=== PATIENT | female | born 1965 | race Caucasian/White ===

== ENCOUNTER 2023-12-04 20:20 | Inpatient (IN) | payer OTHER, MEDICAID ==
[~2023-12-04] VITALS: Ht 165.1 cm; Wt 36.3 kg
[2023-12-04 20:27] VITALS: BP 110/60; PULSE 71; RESP 18; TEMP 98; O2SAT 99
[2023-12-04 21:45] LABS: BASOPHILS % (AUTO) 0.5 % (0.0-2.0); EOSINOPHILS # (AUTO) 0.3 K/uL (0-0.4); EOSINOPHILS % (AUTO) 4.4 % (0.0-4.0); HEMATOCRIT 24.6 % (36-48); HEMOGLOBIN 8.2 g/dL (12.0-16.0); LYMPHOCYTES # (AUTO) 2.2 K/uL (2.5-16.5); LYMPHOCYTES % (AUTO) 33.9 % (20.5-51.1); MEAN CORPUSCULAR HEMOGLOBIN 30 pg (27-31); MEAN CORPUSCULAR HGB CONC 33 g/dL (33-37); MEAN CORPUSCULAR VOLUME 91.4 fL (80-94); MONOCYTES # (AUTO) 0.8 K/uL (0.8-1.0); MONOCYTES % (AUTO) 12.6 % (1.7-9.3); NEUTROPHILS # (AUTO) 3.2 K/uL (1.8-7.7); NEUTROPHILS % (AUTO) 48.6 % (42.2-75.2); PLATELET COUNT (AUTO) 369 K/uL (140-450); RED BLOOD CELL COUNT(AUTO) 2.69 MIL/uL (4.20-5.40); RED CELL DISTRIBUTION WIDTH 16.6 % (11.6-13.7); WHITE BLOOD COUNT (AUTO) 6.5 K/uL (4.8-10.8)
[2023-12-04] MEDS ORDERED: ACETAMINOPHEN 325 MG TAB PO PRN ×2 (22:00→22:30)
[2023-12-04] MEDS ORDERED: ONDANSETRON 4 MG/2 ML VIAL IVP PRN (22:00)
[2023-12-04 22:04] LABS: ALANINE AMINOTRANSFERASE 5 U/L (12-78); ALBUMIN 1.8 g/dL (3.4-5.0); ALKALINE PHOSPHATASE 98 U/L (50-136); ANION GAP 13.7 (8-16); ASPARTATE AMINOTRANSFERASE 10 U/L (15-37); CALCIUM 8.5 mg/dL (8.5-10.1); CARBON DIOXIDE 20.2 mmol/L (21-32); CHLORIDE 109 mmol/L (98-107); CREATININE 1.4 mg/dL (0.6-1.3); GFR ARICAN-AMERICAN 49 mL/min (>90); GFR NON ARICAN-AMERICAN 41 mL/min (>90); GLUCOSE 110 mg/dL (74-106); SODIUM SERUM 140 mmol/L (136-145); TOTAL BILIRUBIN 0.2 mg/dL (0.0-1.0); TOTAL PROTEIN, SERUM 6.6 g/dL (6.4-8.2); UREA NITROGEN, BLOOD 33 mg/dL (7-18)
[2023-12-04 22:07] LABS: POTASSIUM 2.9 mmol/L (3.5-5.1)
[2023-12-04 22:27] LABS: APPEARANCE,URINE CLEAR (CLEAR); BILIRUBIN,URINE NEGATIVE (NEGATIVE); BLOOD, URINE 2+ (NEGATIVE); COLOR,URINE YELLOW (YELLOW); LEUKOCYTE ESTERASE ,URINE 3+ (NEGATIVE); NITRITE, URINE POSITIVE (NEGATIVE); PH,URINE 6.5 (5.0-9.0); PROTEIN,URINE 1+ (NEGATIVE); UGLUCOSE NEGATIVE (NEGATIVE); UROBILINOGEN,URINE 0.2 EU/dL (0.2 - 1)
[2023-12-04] MEDS ORDERED: POTASSIUM CHLORIDE 10 MEQ TABER PO PRN (22:30)
[2023-12-04] MEDS ORDERED: ZOLPIDEM 10 MG TAB PO PRN (22:30)
[2023-12-04] MEDS ORDERED: DOCUSATE SODIUM 100 MG GELCAP PO PRN (22:30)
[2023-12-04 22:33] LABS: BACTERIA,URINE >30 (MANY) /HPF (None Seen); MUCUS,URINE 1+ /LPF (None Seen); SQUAMOUS EPITHELIAL CELL,UR 0-3 (FEW) /LPF (0-3 (FEW)); WBC,URINE TOO MANY TO COUNT /HPF (0-5)
[2023-12-04] MEDS ORDERED: MEROPENEM 500 MG VIAL IV ONE (23:40)
[2023-12-04] MEDS: NACL 0.9% 1,000 ML IV SCH (23:48)
[2023-12-04] MEDS: MEROPENEM 500 MG in NACL 0.9% 50 ML IV SCH (23:49)
[2023-12-05] VITALS (8 sets, daily range): BP systolic 90–124; BP diastolic 52–69; PULSE 74–95; RESP 18; TEMP 97–97.5; O2SAT 95–99
[2023-12-05] MEDS: POTASSIUM CHLORIDE 10 MEQ TABER PO ONE (00:21)
[2023-12-05] MEDS: ONDANSETRON 4 MG/2 ML VIAL IVP PRN (00:24)
[2023-12-05] MEDS: HYDROcodone/APAP 5/325 MG 1 TAB TAB PO PRN (00:45)
[2023-12-05] MEDS ORDERED: OXYC5TAB4 PO (01:58)
[2023-12-05] MEDS ORDERED: KEP500 PO (01:58)
[2023-12-05] MEDS ORDERED: LID5T TP (01:58)
[2023-12-05] MEDS ORDERED: MSCON30 PO (01:58)
[2023-12-05] MEDS ORDERED: ACET-2619 PO (01:58)
[2023-12-05] MEDS ORDERED: PROC-87 PO (01:58)
[2023-12-05] MEDS ORDERED: LYR75 PO (01:58)
[2023-12-05] MEDS ORDERED: MULT-2253 PO (01:58)
[2023-12-05] MEDS ORDERED: ONDA-188 PO (01:58)
[2023-12-05] MEDS ORDERED: SODI650T2 PO (01:58)
[2023-12-05] MEDS ORDERED: [UNRECOGNIZED DRUG - CODE] PO (01:58)
[2023-12-05] MEDS ORDERED: LEVO0.124 PO (01:58)
[2023-12-05] MEDS ORDERED: MEROPENEM 1,000 MG in NACL 0.9% 50 ML IV SCH (05:00)
[2023-12-05 06:46] LABS: BASOPHILS % (AUTO) 0.3 % (0.0-2.0); EOSINOPHILS # (AUTO) 0.3 K/uL (0-0.4); EOSINOPHILS % (AUTO) 4.4 % (0.0-4.0); HEMATOCRIT 24.2 % (36-48); LYMPHOCYTES % (AUTO) 34.3 % (20.5-51.1); MEAN CORPUSCULAR HEMOGLOBIN 31 pg (27-31); MEAN CORPUSCULAR HGB CONC 33 g/dL (33-37); MEAN CORPUSCULAR VOLUME 92.2 fL (80-94); MONOCYTES # (AUTO) 0.8 K/uL (0.8-1.0); MONOCYTES % (AUTO) 13.2 % (1.7-9.3); NEUTROPHILS # (AUTO) 2.8 K/uL (1.8-7.7); NEUTROPHILS % (AUTO) 47.8 % (42.2-75.2); PLATELET COUNT (AUTO) 341 K/uL (140-450); RED BLOOD CELL COUNT(AUTO) 2.62 MIL/uL (4.20-5.40); RED CELL DISTRIBUTION WIDTH 16.4 % (11.6-13.7); WHITE BLOOD COUNT (AUTO) 5.8 K/uL (4.8-10.8)
[2023-12-05 07:00] LABS: ANION GAP 13.6 (8-16); CALCIUM 8.2 mg/dL (8.5-10.1); CREATININE 1.2 mg/dL (0.6-1.3); POTASSIUM 3.6 mmol/L (3.5-5.1)
[2023-12-05] MEDS: MEROPENEM 500 MG in NACL 0.9% 50 ML IV SCH (09:32)
[2023-12-05] MEDS: MORPHINE SULFATE 2 MG/ML SYR IVP PRN (09:43)
[2023-12-05] MEDS: MAG SULF 2000 MG/WATER PREMIX 50 ML IV PRN (18:08)
[2023-12-05] MEDS: levETIRAcetam 500 MG TAB PO SCH (21:10)
[2023-12-06] VITALS (7 sets, daily range): BP systolic 98–111; BP diastolic 63–76; PULSE 69–95; RESP 18–19; TEMP 97.4–97.5; O2SAT 93–98
[2023-12-06] MEDS: LEVOTHYROXINE 0.025 MG TAB PO SCH (06:46)
[2023-12-06 07:13] LABS: BASOPHILS % (AUTO) 0.4 % (0.0-2.0); EOSINOPHILS # (AUTO) 0.1 K/uL (0-0.4); EOSINOPHILS % (AUTO) 2.4 % (0.0-4.0); HEMATOCRIT 24.1 % (36-48); HEMOGLOBIN 8.1 g/dL (12.0-16.0); LYMPHOCYTES # (AUTO) 1.9 K/uL (2.5-16.5); LYMPHOCYTES % (AUTO) 35.4 % (20.5-51.1); MEAN CORPUSCULAR HEMOGLOBIN 31 pg (27-31); MEAN CORPUSCULAR HGB CONC 33 g/dL (33-37); MEAN CORPUSCULAR VOLUME 92.6 fL (80-94); MONOCYTES # (AUTO) 0.6 K/uL (0.8-1.0); MONOCYTES % (AUTO) 11.2 % (1.7-9.3); NEUTROPHILS # (AUTO) 2.7 K/uL (1.8-7.7); NEUTROPHILS % (AUTO) 50.6 % (42.2-75.2); PLATELET COUNT (AUTO) 364 K/uL (140-450); RED BLOOD CELL COUNT(AUTO) 2.61 MIL/uL (4.20-5.40); RED CELL DISTRIBUTION WIDTH 16.2 % (11.6-13.7); WHITE BLOOD COUNT (AUTO) 5.4 K/uL (4.8-10.8)
[2023-12-06 07:32] LABS: ANION GAP 15.1 (8-16); CALCIUM 8.4 mg/dL (8.5-10.1); CREATININE 1.2 mg/dL (0.6-1.3); POTASSIUM 4.1 mmol/L (3.5-5.1)
[2023-12-06] MEDS: PREGABALIN 25 MG CAP PO SCH (08:54)
[2023-12-07] VITALS (7 sets, daily range): BP systolic 104–138; BP diastolic 60–74; PULSE 68–78; RESP 14–20; TEMP 96.3–98.8; O2SAT 94–99
[2023-12-07 07:19] LABS: ALBUMIN 1.9 g/dL (3.4-5.0); ANION GAP 15.8 (8-16); CALCIUM 8.5 mg/dL (8.5-10.1); CARBON DIOXIDE 17.2 mmol/L (21-32); CREATININE 1.1 mg/dL (0.6-1.3); TOTAL BILIRUBIN 0.2 mg/dL (0.0-1.0); TOTAL PROTEIN, SERUM 6.8 g/dL (6.4-8.2)
[2023-12-07 07:24] LABS: BASOPHILS % (AUTO) 0.6 % (0.0-2.0); EOSINOPHILS # (AUTO) 0.1 K/uL (0-0.4); EOSINOPHILS % (AUTO) 1.3 % (0.0-4.0); HEMATOCRIT 26.8 % (36-48); HEMOGLOBIN 8.9 g/dL (12.0-16.0); LYMPHOCYTES # (AUTO) 2.1 K/uL (2.5-16.5); LYMPHOCYTES % (AUTO) 33.3 % (20.5-51.1); MEAN CORPUSCULAR HEMOGLOBIN 31 pg (27-31); MEAN CORPUSCULAR HGB CONC 33 g/dL (33-37); MEAN CORPUSCULAR VOLUME 92.2 fL (80-94); MONOCYTES # (AUTO) 0.5 K/uL (0.8-1.0); MONOCYTES % (AUTO) 7.4 % (1.7-9.3); NEUTROPHILS # (AUTO) 3.6 K/uL (1.8-7.7); NEUTROPHILS % (AUTO) 57.4 % (42.2-75.2); PLATELET COUNT (AUTO) 420 K/uL (140-450); RED CELL DISTRIBUTION WIDTH 16.6 % (11.6-13.7); WHITE BLOOD COUNT (AUTO) 6.3 K/uL (4.8-10.8)
== END 2023-12-07 18:40 | DRG 871 ==
LOC: MED 20:20 → MTU 22:02
PROVIDERS: ADMIT Family Medicine; ATTEND Family Medicine
DX: A41.9 Sepsis, unspecified organism (principal); E43 Unspecified severe protein-calorie malnutrition; N17.9 Acute kidney failure, unspecified; Z68.1 Body mass index [BMI] 19.9 or less, adult; N30.01 Acute cystitis with hematuria; E86.0 Dehydration; E87.6 Hypokalemia; D64.9 Anemia, unspecified; Z79.899 Other long term (current) drug therapy; Z93.3 Colostomy status; R62.7 Adult failure to thrive
CPT/HCPCS: 36415; 71045; 80048; 80053; 81001; 82728; 83540; 83735; 84484; 85025; 87081; 87086; 93005; 97110; 97112; 97163-GP; 97530; 99285; J1644; J2185; J2270; J2405; J3475